=== PATIENT | female | born 2000 | race Caucasian/White ===

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

== ENCOUNTER 2019-07-05 15:00 | Emergency (ER) | payer MEDICAID, OTHER ==
[~2019-07-05] VITALS: Ht 167.6 cm; Wt 65.8 kg
[2019-07-05 15:30] VITALS: BP 128/71
--- NOTE | 2019-07-05 15:51 | NUR ---
PT TAKEN TO BED 12.
--- NOTE | 2019-07-05 15:58 | NUR ---
19 Y/O F C/C UPPER ABDOMINAL PAIN X 2 DAYS, PER PT PAIN IN THE CENTER OF THE UPPER ABDOMEN BETWEEN LUQ/RUQ. PAIN RADIATES FROM CENTER TO BOTH UPPER ABDOMINAL QUADRANTS, SHARP, 11/14. DENIES TAKING OTC RX FOR PAIN. PT BM/URINATION WDL. PT FURTHER COMPLAINTS OF POOR APPETITE, LAST MEAL TAKEN YESTERDAY COMPLAINTS OF NAUSEA AND VOMITING. PT NKA. NO HX. NO SX. NO RX. NO DIARRHEA. SIDE RAIL X1.
[2019-07-05 16:14] LABS: BASOPHILS # (AUTO) 0.1 K/uL (0.00-0.22); BASOPHILS % (AUTO) 0.7 % (0.0-2.0); EOSINOPHILS % (AUTO) 0.1 % (0.0-4.0); HEMATOCRIT 43.8 % (36-48); HEMOGLOBIN 14.7 g/dL (12.0-16.0); LYMPHOCYTES # (AUTO) 1.9 K/uL (2.5-16.5); MEAN CORPUSCULAR HEMOGLOBIN 31 pg (27-31); MEAN CORPUSCULAR HGB CONC 34 g/dL (33-37); MEAN CORPUSCULAR VOLUME 91.2 fL (80-94); MONOCYTES # (AUTO) 0.5 K/uL (0.8-1.0); MONOCYTES % (AUTO) 4.7 % (1.7-9.3); NEUTROPHILS # (AUTO) 8.1 K/uL (1.8-7.7); NEUTROPHILS % (AUTO) 76.5 % (42.2-75.2); PLATELET COUNT (AUTO) 351 K/uL (140-450); RED CELL DISTRIBUTION WIDTH 13.3 % (11.6-13.7); WHITE BLOOD COUNT (AUTO) 10.6 K/uL (4.8-10.8)
[2019-07-05 16:15] LABS: APPEARANCE,URINE CLEAR (CLEAR); BILIRUBIN,URINE NEGATIVE (NEGATIVE); BLOOD, URINE NEGATIVE (NEGATIVE); COLOR,URINE YELLOW (YELLOW); LEUKOCYTE ESTERASE ,URINE NEGATIVE (NEGATIVE); NITRITE, URINE NEGATIVE (NEGATIVE); UGLUCOSE NEGATIVE (NEGATIVE)
[2019-07-05 16:33] LABS: CARBON DIOXIDE 25.5 mmol/L (21-32); CREATININE 0.9 mg/dL (0.6-1.3); POTASSIUM 3.5 mmol/L (3.5-5.1); TOTAL BILIRUBIN 0.8 mg/dL (0.0-1.0)
--- NOTE | 2019-07-05 16:53 | NUR ---
PT RESTING IN BED, SIDE RAIL X1
[2019-07-05] MEDS ORDERED: NACL 0.9% 1,000 ML IV ONE ×2 (17:05→21:35)
[2019-07-05] MEDS ORDERED: ONDANSETRON 4 MG/2 ML VIAL IVP ONE ×2 (17:05→20:20)
[2019-07-05] MEDS ORDERED: KETOROLAC 30 MG/ML VIAL IVP ONE (17:05)
[2019-07-05] MEDS ORDERED: ALUMINUM HYD/MAG/SIMETHICONE 30 ML, DICYCLOMINE HCL LIQUID 20 MG, LIDOCAINE VISCOUS 2% ... PO ONE ×3 (18:55)
[2019-07-05] MEDS ORDERED: ALUMINUM HYD/MAG/SIMETHICONE 30 ML UDC ONE (18:57)
[2019-07-05] MEDS ORDERED: DICYCLOMINE HCL LIQUID 10 MG/5 ML UDC ONE (18:57)
[2019-07-05] MEDS ORDERED: LIDOCAINE VISCOUS 2% 20 ML UDC ONE (18:57)
--- NOTE | 2019-07-05 19:04 | NUR ---
US AT BEDSIDE
--- NOTE | 2019-07-05 19:05 | NUR ---
REPORT GIVEN TO FRANCISCO DENNY FOR CONTINUITY OF CARE
--- NOTE | 2019-07-05 19:24 | NUR ---
PT MEDICATED WITH GI COCKTAIL. TOLERATED WELL. NO FURTHER NEEDS AT THIS TIME.
[2019-07-05] MEDS ORDERED: MORPHINE SULFATE 4 MG/ML SYR IVP ONE (20:20)
--- NOTE | 2019-07-05 21:00 | NUR ---
PT IN BED RESTING COMFORTABLY. VISIBLE CHEST RISE AND FALL. AROUSABLE TO VOICE. NO FURTHER NEEDS AT THIS TIME.
[2019-07-05] MEDS ORDERED: HYDROcodone/APAP 5/325 MG 1 TAB TAB PO ONE (21:30)
--- NOTE | 2019-07-05 21:30 | NUR ---
PT MEDICATED WITH NORCO FOR PAIN . TOLERATED WELL.
[2019-07-05] MEDS ORDERED: ALUMINUM HYD/MAG/SIMETHICONE 30 ML UDC PO ONE (21:45)
--- NOTE | 2019-07-05 22:03 | NUR ---
PT STATES DECREASED IN PAIN FROM 6/10 TO 1/10 AND TOLERABLE. NO FURTHER NEEDS AT THIS TIME.
--- NOTE | 2019-07-05 22:19 | NUR ---
Patient discharged with v/s stable. Written and verbal after care instructions given and explained. copy of CT results sent home with the patient. Patient alert, oriented and verbalized understanding of instructions. Ambulatory with steady gait. All questions addressed prior to discharge. ID band removed. Patient advised to follow up with PMD. Rx of norco, zofran, and omeprazole given. Patient educated on indication of medication including possible reaction and side effects. Opportunity to ask questions provided and answered.
[2019-07-05 22:21] VITALS: BP 128/62
== END 2019-07-05 22:22 | disposition home or self-care (01) ==
LOC: MED 15:00
DX: K29.70 Gastritis, unspecified, without bleeding (principal)
CPT/HCPCS: 36415; 74177; 76705; 80053; 81003; 81025; 83690; 85025; 96361; 96374; 96375; 96376; 99285; J1885; J2270; J2405; J7030; Q0092; Q9967

== ENCOUNTER 2019-12-01 09:03 | Emergency (ER) | payer OTHER ==
[~2019-12-01] VITALS: Ht 162.6 cm; Wt 56.7 kg
[2019-12-01 09:10] VITALS: BP 154/87
[2019-12-01] MEDS ORDERED: DICYCLOMINE HCL LIQUID 20 MG, ALUMINUM HYD/MAG/SIMETHICONE 30 ML, LIDOCAINE VISCOUS 2% ... PO ONE ×3 (09:20)
[2019-12-01] MEDS ORDERED: ONDANSETRON 4 MG ODT PO ONE (09:20)
[2019-12-01] MEDS ORDERED: LIDOCAINE VISCOUS 2% 20 ML UDC ONE (09:22)
[2019-12-01] MEDS ORDERED: ALUMINUM HYD/MAG/SIMETHICONE 30 ML UDC ONE (09:22)
[2019-12-01] MEDS ORDERED: DICYCLOMINE HCL LIQUID 10 MG/5 ML UDC ONE (09:22)
[2019-12-01] MEDS ORDERED: NACL 0.9% 1,000 ML IV ONE (10:00)
[2019-12-01] MEDS ORDERED: KETOROLAC 30 MG/ML VIAL IVP ONE (10:00)
[2019-12-01] MEDS ORDERED: ONDANSETRON 4 MG/2 ML VIAL IVP ONE (10:00)
[2019-12-01] MEDS ORDERED: MORPHINE SULFATE 4 MG/ML SYR IVP ONE (10:25)
[2019-12-01 10:43] VITALS: BP 99/66
== END 2019-12-01 10:43 | disposition home or self-care (01) ==
LOC: MED 09:03
DX: R10.13 Epigastric pain (principal); R11.2 Nausea with vomiting, unspecified
CPT/HCPCS: 81002; 81025; 96361; 96374; 96375; 99284; J1885; J2270; J2405; Q0162; J7030